=== PATIENT | male | born 1935 | race Caucasian/White ===

== ENCOUNTER 2024-03-20 14:57 | Inpatient (IN) | payer MEDICARE, OTHER ==
[~2024-03-20] VITALS: Ht 170.2 cm; Wt 57.2 kg
[2024-03-20] MEDS ORDERED: LEVE500T83 PO ×2 (15:38)
[2024-03-20] MEDS ORDERED: METO100T14 PO (15:38)
[2024-03-20] MEDS ORDERED: PANT40TA2 PO (15:38)
[2024-03-20] MEDS ORDERED: QUET25TA PO (15:38)
[2024-03-20] MEDS ORDERED: APIX5TAB PO (15:38)
[2024-03-20] MEDS ORDERED: ACET325C7 PO (15:38)
[2024-03-20] MEDS ORDERED: ATOR40TA PO (15:38)
[2024-03-20] MEDS ORDERED: FURO-152 PO (15:38)
[2024-03-20 16:15] LABS: BASOPHILS # (AUTO) 0.1 K/UL (0.0-0.2); BASOPHILS % (AUTO) 1.6 % (0.0-2.0); EOSINOPHILS # (AUTO) 0.7 K/uL (0.0-0.7); HEMATOCRIT 38.4 % (36.7-47.1); HEMOGLOBIN 13.2 g/dL (12.5-16.3); LYMPHOCYTES # (AUTO) 0.9 K/uL (0.8-4.8); LYMPHOCYTES % (AUTO) 11.4 % (20.5-51.5); MEAN CORPUSCULAR HEMOGLOBIN 32.7 uug (23.8-33.4); MEAN CORPUSCULAR HGB CONC 34 g/dL (32.5-36.3); MEAN CORPUSCULAR VOLUME 95.4 fL (73.0-96.2); MONOCYTES # (AUTO) 0.6 K/uL (0.1-1.30); MONOCYTES % (AUTO) 8.1 % (0.0-11.0); NEUTROPHILS # (AUTO) 5.5 K/uL (1.8-8.9); NEUTROPHILS % (AUTO) 69.9 % (38.5-71.5); PLATELET COUNT (AUTO) 139 K/uL (152-348); RED BLOOD CELL COUNT(AUTO) 4.03 MIL/uL (4.06-5.63); RED CELL DISTRIBUTION WIDTH 14.3 % (12.1-16.2); WHITE BLOOD COUNT (AUTO) 7.8 K/uL (3.6-10.2)
[2024-03-20 16:25] LABS: DIFFERENTIAL COMMENT 1
[2024-03-20 16:42] LABS: AMMONIA < 10 umol/L (11-32); ETHANOL < 3 MG/DL (0-10); THYROID STIMULATING HORMONE 1.715 mIU/mL (0.358-3.740)
[2024-03-20 17:29] LABS: CALCIUM 9.3 mg/dL (8.5-10.1); CARBON DIOXIDE 27 mmol/L (21-32); CHLORIDE 107 mmol/L (98-107); GLUCOSE 95 mg/dL (74-106); POTASSIUM 4.3 mmol/L (3.5-5.1); SODIUM SERUM 144 mmol/L (136-145); UREA NITROGEN, BLOOD 23 mg/dL (7-18)
[2024-03-20 17:35] LABS: ALANINE AMINOTRANSFERASE 16 U/L (16-63); ALKALINE PHOSPHATASE 94 U/L (50-136); ASPARTATE AMINOTRANSFERASE 15 U/L (15-37); BILIRUBIN,DIRECT 0.2 mg/dL (0.0-0.2); BILIRUBIN,TOTAL 0.9 mg/dL (0.2-1.0); TOTAL PROTEIN, SERUM 6.9 g/dL (6.4-8.2)
[2024-03-20 17:37] LABS: ACETAMINOPHEN < 2.0 ug/mL (10-30)
[2024-03-21] MEDS ORDERED: MAG HYDROX/AL HYDROX/SIMETH 30 ML LIQUID UDC PO PRN (01:00)
[2024-03-21] MEDS ORDERED: MAGNESIUM HYDROXIDE 30 ML LIQUID UDC PO PRN (01:00)
[2024-03-21 07:30] VITALS: BP 144/97; TEMP 98; O2SAT 94
[2024-03-21] MEDS: ESCITALOPRAM OXALATE 10 MG TABLET PO SCH (14:14)
[2024-03-21 15:25] VITALS: BP 107/59; TEMP 98; O2SAT 96
[2024-03-21] MEDS ORDERED: hydrALAZINE HCL 25 MG TABLET PO PRN (16:45)
[2024-03-21] MEDS: APIXABAN 5 MG TABLET PO SCH (17:54)
[2024-03-21 20:00] VITALS: BP 129/72; TEMP 98; O2SAT 95
[2024-03-21] MEDS ORDERED: Medication Not On Formulary EA (Levetiracetam 250 MG) PO SCH (21:00)
[2024-03-21] MEDS: ATORVASTATIN 40 MG TABLET PO SCH (21:22)
[2024-03-21] MEDS: QUETIAPINE FUMARATE 25 MG TABLET PO SCH (21:23)
[2024-03-21] MEDS: METOPROLOL TARTRATE 50 MG TABLET PO SCH (21:23)
[2024-03-22] MEDS: PANTOPRAZOLE SODIUM 40 MG TABLET.DR PO SCH (06:23)
[2024-03-22 07:30] VITALS: BP 97/62; TEMP 98.2; O2SAT 96
[2024-03-22 08:09] LABS: FOLATE (FOLIC ACID), SERUM 7.9 ng/mL (>3.0)
[2024-03-22] MEDS: levETIRAcetam 500 MG TABLET PO SCH (08:52)
[2024-03-22] MEDS: FUROSEMIDE 20 MG TABLET PO SCH (08:57)
[2024-03-22] MEDS ORDERED: Medication Not On Formulary EA (Levetiracetam 500 MG) PO SCH (09:00)
[2024-03-22] MEDS: ACETAMINOPHEN 325 MG TABLET PO PRN (09:05)
[2024-03-22 15:09] VITALS: BP 100/67; TEMP 98.2; O2SAT 94
[2024-03-22] MEDS: LORAZEPAM 1 MG TABLET PO PRN (15:58)
[2024-03-22 20:00] VITALS: BP 118/72; TEMP 97.8; O2SAT 97
[2024-03-22] MEDS: levETIRAcetam 250 MG TABLET PO SCH (20:25)
[2024-03-23] MEDS: REMEDY ESSENTIAL ZINC PASTE 113 GM TOP PRN (06:53)
[2024-03-23 07:56] VITALS: BP 136/55; TEMP 98.1; O2SAT 96
[2024-03-23 16:50] VITALS: BP 113/67; TEMP 98; O2SAT 98
[2024-03-23 20:00] VITALS: BP 127/79; TEMP 97.5; O2SAT 95
[2024-03-24 08:43] VITALS: BP 130/69; TEMP 97.9; O2SAT 97
[2024-03-24 16:08] VITALS: BP 119/73; TEMP 98; O2SAT 97
[2024-03-24 20:02] VITALS: BP 134/74; TEMP 97.8; O2SAT 96
[2024-03-24] MEDS: ATORVASTATIN 10 MG TABLET PO SCH (20:27)
[2024-03-24] MEDS: ZOLPIDEM 5 MG TABLET PO PRN (23:39)
[2024-03-25 07:53] VITALS: BP 124/59; TEMP 97.6; O2SAT 95
[2024-03-25 16:37] VITALS: BP 102/84; TEMP 98; O2SAT 96
[2024-03-25 19:47] VITALS: BP 111/66; TEMP 98.1; O2SAT 95
[2024-03-26 07:30] VITALS: BP 121/46; TEMP 98; O2SAT 98
[2024-03-26] MEDS: DULOXETINE 30 MG CAPSULE.DR PO SCH (09:31)
[2024-03-26 15:12] VITALS: BP 107/59; TEMP 98; O2SAT 100
[2024-03-26 20:07] VITALS: BP 112/51; TEMP 98.2; O2SAT 99
[2024-03-27 07:49] VITALS: BP 114/60; TEMP 97.8; O2SAT 96
[2024-03-27] MEDS: PANTOPRAZOLE ORAL SUSPENSION 40 MG SUSPDR.PKT PO SCH (08:52)
[2024-03-27 15:13] VITALS: BP 117/50; TEMP 98; O2SAT 96
[2024-03-27 20:00] VITALS: BP 108/68; TEMP 98.1; O2SAT 98
[2024-03-28 08:02] VITALS: BP 136/61; TEMP 98; O2SAT 98
[2024-03-28] MEDS: ENSURE WITH FIBER 237 ML LIQUID (CHOCOLATE) PO SCH (08:47)
[2024-03-28 15:25] VITALS: BP 98/69; TEMP 98; O2SAT 99
[2024-03-28 20:00] VITALS: BP 104/61; TEMP 98.1; O2SAT 97
[2024-03-29 07:55] VITALS: BP 96/54; TEMP 97.8; O2SAT 93
[2024-03-29 16:04] VITALS: BP 102/62; TEMP 98; O2SAT 95
[2024-03-29 20:00] VITALS: BP 123/76; TEMP 98.1; O2SAT 96
[2024-03-30 07:59] VITALS: BP 104/73; TEMP 98.5; O2SAT 97
[2024-03-30 16:34] VITALS: BP 110/62; TEMP 98.3; O2SAT 97
[2024-03-30 20:09] VITALS: BP 111/75; TEMP 98; O2SAT 97
[2024-03-31 08:49] VITALS: BP 98/71; TEMP 97.4; O2SAT 96
[2024-03-31 16:11] VITALS: BP 109/77; TEMP 97.6; O2SAT 96
[2024-03-31 19:46] VITALS: BP 111/70; TEMP 97.8; O2SAT 96
[2024-04-01 07:22] LABS: BASOPHILS # (AUTO) 0.1 K/UL (0.0-0.2); BASOPHILS % (AUTO) 0.9 % (0.0-2.0); EOSINOPHILS # (AUTO) 0.4 K/uL (0.0-0.7); EOSINOPHILS % (AUTO) 5.2 % (0.0-7.0); HEMATOCRIT 37.2 % (36.7-47.1); HEMOGLOBIN 13.1 g/dL (12.5-16.3); LYMPHOCYTES # (AUTO) 0.8 K/uL (0.8-4.8); LYMPHOCYTES % (AUTO) 11.1 % (20.5-51.5); MEAN CORPUSCULAR HEMOGLOBIN 33.1 uug (23.8-33.4); MEAN CORPUSCULAR HGB CONC 35 g/dL (32.5-36.3); MEAN CORPUSCULAR VOLUME 94.2 fL (73.0-96.2); MONOCYTES # (AUTO) 0.7 K/uL (0.1-1.30); MONOCYTES % (AUTO) 9.6 % (0.0-11.0); NEUTROPHILS # (AUTO) 5.5 K/uL (1.8-8.9); NEUTROPHILS % (AUTO) 73.2 % (38.5-71.5); PLATELET COUNT (AUTO) 231 K/uL (152-348); RED BLOOD CELL COUNT(AUTO) 3.95 MIL/uL (4.06-5.63); WHITE BLOOD COUNT (AUTO) 7.5 K/uL (3.6-10.2)
[2024-04-01 07:32] LABS: DIFFERENTIAL COMMENT 1
[2024-04-01 08:00] VITALS: BP 119/70; TEMP 97.9; O2SAT 96
[2024-04-01 16:00] VITALS: BP 115/81; TEMP 97.3; O2SAT 96
[2024-04-01 19:53] VITALS: BP 112/76; TEMP 97.8; O2SAT 95
[2024-04-02 07:30] VITALS: BP 117/69; TEMP 97.8; O2SAT 94
[2024-04-02 15:14] VITALS: BP 115/80; TEMP 98; O2SAT 98
== END 2024-04-02 15:30 | DRG 885 ==
LOC: ER 14:57 → GPS 22:20
PROVIDERS: ADMIT Psychiatry & Neurology Psychiatry; ATTEND Internal Medicine
DX: F29 Unspecified psychosis not due to a substance or known physiological condition (principal); F03.92 Unspecified dementia, unspecified severity, with psychotic disturbance; R45.851 Suicidal ideations; E44.0 Moderate protein-calorie malnutrition; F03.94 Unspecified dementia, unspecified severity, with anxiety; F03.911 Unspecified dementia, unspecified severity, with agitation; M48.56XA Collapsed vertebra, not elsewhere classified, lumbar region, initial encounter for fracture; D68.59 Other primary thrombophilia; F03.93 Unspecified dementia, unspecified severity, with mood disturbance; G40.909 Epilepsy, unspecified, not intractable, without status epilepticus; I69.391 Dysphagia following cerebral infarction; I48.0 Paroxysmal atrial fibrillation; Z85.810 Personal history of malignant neoplasm of tongue; I69.321 Dysphasia following cerebral infarction; R13.10 Dysphagia, unspecified; I10 Essential (primary) hypertension; Z79.01 Long term (current) use of anticoagulants; E88.09 Other disorders of plasma-protein metabolism, not elsewhere classified; E78.5 Hyperlipidemia, unspecified; R79.89 Other specified abnormal findings of blood chemistry; M54.50 Low back pain, unspecified; I35.0 Nonrheumatic aortic (valve) stenosis; Z74.01 Bed confinement status; Z79.899 Other long term (current) drug therapy; K21.9 Gastro-esophageal reflux disease without esophagitis; D69.6 Thrombocytopenia, unspecified
CPT/HCPCS: 36415; 70450; 71045; 82746; 83921; 84443; 84484; 85025; 85730; 93005; G0480